=== PATIENT | male | born 1965 | race American Indian/Alaskan Native ===

== ENCOUNTER 2019-10-09 12:12 | Emergency (ER) | payer SELFPAY ==
[2019-10-09 13:47] VITALS: BP 139/60
--- NOTE | 2019-10-09 13:49 | Event Note ---
ED Screening Note Date of service: 10/09/19 Time: 13:46 ED Screening Note: 54 y o male presents to left flank pain x today with nausea, vommitting denies trauma, injury or hx of kidney stones, This initial assessment/diagnostic orders/clinical plan/treatment(s) is/are subject to change based on patients health status, clinical progression and re- assessment by fellow clinical providers in the ED. Further treatment and workup at subsequent clinical providers discretion. Patient/guardian urged not to elope from the ED as their condition may be serious if not clinically assessed and managed. Initial orders include: ua,cbc,cmp
[2019-10-09 14:51] LABS: Bacteria,Urine 4+ /HPF (Negative); Bilirubin,Urine NEG (Negative); Blood,Urine SM (Negative); Color,Urine Yellow (Yellow); Mucus,Urine 1+ /HPF; Sperm,Urine 2+ /HPF (NP); Urobilinogen,Urine < 2.0 mg/dL (<2.0)
[2019-10-09] MEDS ORDERED: oxyCODONE /ACETAMINOPHEN 5-325MG TAB PO PRN (15:18)
[2019-10-09 15:19] LABS: Basophils # (Auto) 0.2 K/mm3 (0.0-0.1); Eosinophils % (Auto) 0.2 % (0.0-4.3); Hematocrit 40.5 % (35.5-45.6); Lymphocytes # (Auto) 0.6 K/mm3 (1.2-5.4); Lymphocytes % (Auto) 6.6 % (13.4-35.0); Mean Corpuscular HGB Conc 32 % (32-34); Mean Corpuscular Volume 89 fl (84-94); Monocytes # (Auto) 0.5 K/mm3 (0.0-0.8); Monocytes % (Auto) 5.1 % (0.0-7.3); Platelet Count 190 K/mm3 (140-440); Red Blood Count 4.56 M/mm3 (3.65-5.03); Red Cell Distribution Width 13.7 % (13.2-15.2)
[2019-10-09 15:23] LABS: Albumin 4.2 g/dL (3.9-5); Calcium 9.8 mg/dL (8.4-10.2)
--- NOTE | 2019-10-09 15:57 | Cat Scan Report ---
CT abdomen pelvis wo con INDICATION: Left flank pain. TECHNIQUE: All CT scans at this location are performed using the following dose modulation technique: Automated exposure control. Helical slices were obtained through the abdomen and pelvis. No contrast is adminis tered. COMPARISON: None available. FINDINGS: Abdomen: The lung bases are clear. The liver, spleen, pancreas, adrenal glands, and small bowel show no acute abnormality. The appendix is unremarkable. There are multiple small hyperdense nodules in both kidneys characteristic of small hemorrhagic or pr oteinaceous cysts. These measure less than a centimeter. Hypodensity in the mid left kidney measures 2.2 cm and water density and is characteristic of a cyst. A 18 mm hypodensity in the upper pole of the right kidney also measures water density and is charact eristic of cyst. There is a 2.5 cm hypodensity which is exophytic arising from the mid posterior left kidney is measur es 20 Hounsfield units. There is no adenopathy. There is no obstruction, inflammation, or free air. There are no renal or ureteral calculi. There is no hydronephrosis. Pelvis: There is no obstruction or inflammation. Phleboliths are noted in the left pelvis. On review of bone windows, no acute osseous abnormalities are seen. Degenerative changes are noted in the hips and at L3-4. IMPRESSION: There are bilateral renal cysts. Subcentimeter hyperdense nodules in both kidneys likely represent hyperdense hemorrhagic or proteinaceous cysts. There is a 2.5 cm exophytic hypodensity arising from the posterior mid left kidney which is indetermi leelee on this study. Renal ultrasound is recommended to further evaluate. There is no obstruction, inflammation, or free air. There are no abnormal fluid collections. There ar e no renal or ureteral calculi. There is no hydronephrosis. Signer Name: Bola Richards MD Signed: 10/09/2019 3:53 PM Workstation Name: [id number]
--- NOTE | 2019-10-09 16:28 | Emergency Department Report ---
ED General Adult HPI - General Chief complaint: Back Pain/Injury Stated complaint: BACK PAIN Time Seen by Provider: 10/09/19 15:00 Source: patient Mode of arrival: Wheelchair Limitations: No Limitations - History of Present Illness Initial comments: 54 yo male c/o of left flank pain started earlier today while at work the pain radiates down to the left thigh. He denies any recent falls or trauma. Denies dysuria, no nausea no vomiting no diarrhea. No abdominal pain. No fever or chills. Denies any prior hx of such pain . -: Sudden Location: left (left flank radiating to left thigh) Severity scale (0 -10): 10 Quality: aching Consistency: constant Improves with: none Worsens with: none Associated Symptoms: denies other symptoms Treatments Prior to Arrival: none - Related Data Previous Rx's Medication Instructions Recorded Last Taken Type Ciprofloxacin HCl [Ciprofloxacin 500 mg PO Q12HR 7 Days #14 tab 10/09/19 Unknown Rx TAB] traMADoL [Ultram] 50 mg PO Q6HR PRN #12 tablet 10/09/19 Unknown Rx Allergies Allergy/AdvReac Type Severity Reaction Status Date / Time No Known Allergies Allergy Verified 10/09/19 13:46 ED Review of Systems ROS: Stated complaint: BACK PAIN Other details as noted in HPI Comment: All other systems reviewed and negative Constitutional: no symptoms reported ENT: denies: throat pain Respiratory: denies: cough, shortness of breath, wheezing Cardiovascular: denies: chest pain, palpitations Endocrine: no symptoms reported Gastrointestinal: denies: abdominal pain, nausea, vomiting Genitourinary: denies: dysuria, frequency, hematuria, testicular pain, testicu lar mass Skin: denies: rash Neurological: denies: headache, weakness Hematological/Lymphatic: denies: as per HPI ED Past Medical Hx - Past Medical History Previous Medical History?: No - Surgical History Past Surgical History?: No - Social History Smoking Status: Current Every Day Smoker Substance Use Type: Alcohol, Marijuana - Medications Home Medications: Home Medications Medication Instructions Recorded Confirmed Last Taken Type Ciprofloxacin HCl [Ciprofloxacin 500 mg PO Q12HR 7 Days #14 tab 10/09/19 Unknown Rx TAB] traMADoL [Ultram] 50 mg PO Q6HR PRN #12 tablet 10/09/19 Unknown Rx ED Physical Exam - General Limitations: No Limitations General appearance: alert, in no apparent distress - Head Head exam: Present: atraumatic - Eye Eye exam: Present: normal appearance - ENT ENT exam: Present: normal exam, normal orophraynx, mucous membranes moist - Neck Neck exam: Present: normal inspection - Respiratory Respiratory exam: Present: normal lung sounds bilaterally. Absent: respiratory distress, wheezes, rales, rhonchi - Cardiovascular Cardiovascular Exam: Present: regular rate, normal heart sounds - GI/Abdominal GI/Abdominal exam: Present: soft, tenderness, guarding - Rectal Rectal exam: Absent: deferred - Extremities Exam Extremities exam: Present: normal inspection - Back Exam Back exam: Present: normal inspection, CVA tenderness (L) - Neurological Exam Neurological exam: Present: alert, oriented X3 - Psychiatric Psychiatric exam: Present: normal affect, normal mood - Skin Skin exam: Present: warm, dry, intact, normal color ED Course Vital Signs 10/09/19 13:45 Temperature 97.3 F L Pulse Rate 55 L Respiratory 22 Rate Blood Pressure 139/60 [Right] O2 Sat by Pulse 99 Oximetry ED Medical Decision Making - Lab Data Result diagrams: 10/09/19 14:39 10/09/19 14:39 - Radiology Data Radiology results: report reviewed CT abd/Pelvis IMPRESSION: There are bilateral renal cysts. Subcentimeter hyperdense nodules in both kidneys likely represent hyperdense hemorrhagic or proteinaceous cysts. There is a 2.5 cm exophytic hypodensity arising from the posterior mid left kidney which is indeterminate on this study. Renal ultrasound is recommended to further evaluate. There is no obstruction, inflammation, or free air. There are no abnormal fluid collections. There are no renal or ureteral calculi. There is no hydronephrosis. Critical care attestation.: If time is entered above; I have spent that time in minutes in the direct care of this critically ill patient, excluding procedure time. ED Disposition Clinical Impression: Renal cyst UTI (urinary tract infection) Qualifiers: Urinary tract infection type: acute cystitis Hematuria presence: with hematuria Qualified Code(s): N30.01 - Acute cystitis with hematuria Disposition: TO HOME OR SELFCARE Is pt being admited?: No Does the pt Need Aspirin: No Condition: Stable Instructions: Urinary Tract Infection in Men (ED), Flank Pain (ED) Additional Instructions: Drink plenty fluids. The cat scan of your abdomen and pelvis done today shows a 2.5 cm exophytic hypodensity arising from the posterior mid left kidney Renal ultrasound is recommended to further evaluate. Please follow up with your Doctor or [facility] for further evaluation. Return to the ER for fever, vomiting or increasing pain. Prescriptions: Ciprofloxacin HCl [Ciprofloxacin TAB] 500 mg PO Q12HR 7 Days #14 tab traMADoL [Ultram] 50 mg PO Q6HR PRN #12 tablet PRN Reason: Pain Time of Disposition: 16:28
== END 2019-10-09 17:34 | disposition home or self-care (01) ==
LOC: ED 12:12
DX: N28.1 Cyst of kidney, acquired (principal); N39.0 Urinary tract infection, site not specified; F17.200 Nicotine dependence, unspecified, uncomplicated; F12.10 Cannabis abuse, uncomplicated
CPT/HCPCS: 36415; 74176; 80053; 81001; 85025; 87086